=== PATIENT | male | born 1955 | race Two or more races ===

== ENCOUNTER 2021-08-03 02:43 | Inpatient (IN) | payer BC ==
[~2021-08-03] VITALS: Ht 167.6 cm; Wt 71.0 kg
[2021-08-03] MEDS ORDERED: DEXTROSE (50%) 50ML SYRG IV ONE (04:15)
[2021-08-03] MEDS ORDERED: DEXTROSE 10% 1,000 ML IV ONE (04:15)
[2021-08-03 04:57] LABS: Basophils # (auto) 0 10 ^3/uL (0-0.2); Basophils % (auto) 0.7 % (0.0-2.0); Eosinophils # (auto) 0 10 ^3/uL (0-0.8); Eosinophils % (auto) 0.1 % (0.0-7.0); Hematocrit 32.7 % (41.0-53.0); Hemoglobin 11.3 g/dL (13.5-17.5); Lymphocytes # (auto) 0.8 10 ^3/uL (0.4-5.4); Lymphocytes % (auto) 13.3 % (10.0-50.0); Mean Corpuscular Hemoglobin 33.3 pg (28.0-32.0); Mean Corpuscular Hgb Conc. 34.5 g/dL (32.0-36.0); Mean Corpuscular Volume 96.6 fL (80.0-100.0); Monocytes # (auto) 0.5 10 ^3/uL (0-1.3); Monocytes % (auto) 8.7 % (0.0-12.0); Neutrophils # (auto) 4.4 10 ^3/uL (1.6-8.6); Neutrophils % (auto) 77.2 % (37.0-80.0); Red Blood Cells 3.38 10^6/uL (4.5-5.90); Red Cell Distribution Width 13.3 % (11.8-14.3); White Blood Cell 5.7 10^3/uL (4.4-10.8)
[2021-08-03 05:11] LABS: Calcium 8.2 mg/dL (8.5-10.1)
[2021-08-03 05:15] LABS: Albumin 3.5 g/dL (3.4-5.0); BUN/Creatinine Ratio 7.7
[2021-08-03 05:17] LABS: Bilirubin, Total 0.3 mg/dL (0.2-1.0); Total Protein 7.4 g/dL (6.4-8.2)
[2021-08-03] MEDS ORDERED: ONDANSETRON HCL 4 MG/2 ML VIAL IV PRN ×2 (06:00→14:15)
[2021-08-03] MEDS ORDERED: cloNIDine HCL 0.1 MG TAB PO PRN (06:00)
[2021-08-03] MEDS ORDERED: ACETAMINOPHEN 325 MG TAB PO PRN (06:00)
[2021-08-03] MEDS: DEXTROSE 10% 1,000 ML IV SCH ×3 (06:00→14:15)
[2021-08-03] MEDS ORDERED: TEMAZEPAM 15 MG CAP PO PRN (06:00)
[2021-08-03] MEDS ORDERED: GABAPENTIN 300 MG CAP PO SCH (06:00)
[2021-08-03] MEDS: ACCU-CHEK COMFORT CURVE STRIP VI SCH ×11 (08:00→23:00)
[2021-08-03] MEDS: InsuLIN REG 1unit/0.01ml Soln (100units/ml) SC SCH ×2 (09:47→11:31)
[2021-08-03] MEDS: DEXTROSE (50%) 50ML SYRG IV PRN ×3 (09:49→14:07)
[2021-08-03] MEDS: METOPROLOL TARTRATE 50 MG TAB PO SCH ×2 (10:04→21:24)
[2021-08-03] MEDS ORDERED: BUMETANIDE 2.5mg/10ml (0.25 mg/ml) INJ IV ONE (10:45)
[2021-08-03] MEDS ORDERED: SODIUM BICARBONATE 8.4 % INJ 50ML VIAL IV ONE (10:45)
[2021-08-03 11:00] VITALS: BP 169/96
[2021-08-03] MEDS: amLODIPine BESYLATE 5 MG TAB PO SCH (11:30)
[2021-08-03] MEDS: CALCIUM ACETATE 667 MG CAP PO SCH ×2 (11:39→18:23)
[2021-08-03] MEDS ORDERED: hydrALAZINE HCL 20 MG/ML VL IV PRN (14:15)
[2021-08-03] MEDS: SODIUM ZIRCONIUM CYCL 10 GM PAK PO SCH ×2 (16:46→21:22)
[2021-08-03 17:20] VITALS: BP 162/94
[2021-08-03] MEDS ORDERED: GLIP5TAB12 PO (17:34)
[2021-08-03] MEDS ORDERED: METF-370 PO (17:34)
[2021-08-03] MEDS: BUMETANIDE 2.5mg/10ml (0.25 mg/ml) INJ IV SCH (18:23)
[2021-08-03] MEDS: HEPARIN SODIUM (PORCINE) 5000 UNITS/ML 1ML VIAL SC SCH (21:26)
[2021-08-03] MEDS ORDERED: GABAPENTIN 100 MG CAP PO SCH (22:00)
[2021-08-03 22:36] VITALS: BP 149/79
[2021-08-04] MEDS: ACCU-CHEK COMFORT CURVE STRIP VI SCH ×18 (01:00→22:00)
[2021-08-04] MEDS: DEXTROSE 10% 1,000 ML IV SCH ×2 (03:36→16:55)
[2021-08-04 05:24] VITALS: BP 130/85
[2021-08-04] MEDS: SODIUM ZIRCONIUM CYCL 10 GM PAK PO SCH ×3 (06:10→23:12)
[2021-08-04] MEDS: BUMETANIDE 2.5mg/10ml (0.25 mg/ml) INJ IV SCH ×2 (06:10→18:10)
[2021-08-04] MEDS ORDERED: SODIUM CHL 0.9% 1000 ML BAG XX ONE (07:00)
[2021-08-04] MEDS: CALCIUM ACETATE 667 MG CAP PO SCH ×3 (08:44→18:10)
[2021-08-04] MEDS: METOPROLOL TARTRATE 50 MG TAB PO SCH ×2 (08:46→23:14)
[2021-08-04] MEDS: amLODIPine BESYLATE 5 MG TAB PO SCH (08:47)
[2021-08-04 09:14] LABS: Basophils # (auto) 0 10 ^3/uL (0-0.2); Basophils % (auto) 0.8 % (0.0-2.0); Eosinophils # (auto) 0 10 ^3/uL (0-0.8); Eosinophils % (auto) 0.6 % (0.0-7.0); Hematocrit 28.5 % (41.0-53.0); Hemoglobin 9.8 g/dL (13.5-17.5); Lymphocytes # (auto) 0.8 10 ^3/uL (0.4-5.4); Lymphocytes % (auto) 20.6 % (10.0-50.0); Mean Corpuscular Hgb Conc. 34.6 g/dL (32.0-36.0); Mean Corpuscular Volume 95.2 fL (80.0-100.0); Monocytes # (auto) 0.4 10 ^3/uL (0-1.3); Neutrophils # (auto) 2.6 10 ^3/uL (1.6-8.6); Nucleated Red Blood Cells % 0.1 %; Red Blood Cells 2.99 10^6/uL (4.5-5.90); Red Cell Distribution Width 13.1 % (11.8-14.3); White Blood Cell 3.8 10^3/uL (4.4-10.8)
[2021-08-04 09:30] VITALS: BP 159/62
[2021-08-04 09:43] LABS: BUN/Creatinine Ratio 6.9; Calcium 7.4 mg/dL (8.5-10.1); Phosphorus 5.3 mg/dL (2.5-4.90); Potassium 4.5 mmol/L (3.5-5.1)
[2021-08-04] MEDS: HEPARIN SODIUM (PORCINE) 5000 UNITS/ML 1ML VIAL SC SCH ×2 (10:08→23:17)
[2021-08-04] MEDS ORDERED: FAMO-12 PO (11:42)
[2021-08-04] MEDS ORDERED: METO-159 PO (11:42)
[2021-08-04] MEDS ORDERED: BUME2TAB5 PO (11:42)
[2021-08-04] MEDS ORDERED: CLON0.1T PO (11:42)
[2021-08-04] MEDS ORDERED: HYDR-4798 PO (11:42)
[2021-08-04] MEDS ORDERED: GABA300C10 PO (11:42)
[2021-08-04 13:00] VITALS: BP 156/69
[2021-08-04 16:30] VITALS: BP 128/64
[2021-08-04] MEDS ORDERED: EPOETIN ALFA-EPBX 10,000 UNIT/1ML VIAL SC ONE (21:00)
[2021-08-04 22:00] VITALS: BP 137/66
[2021-08-04] MEDS ORDERED: GABAPENTIN 300 MG CAP PO ONE (23:30)
[2021-08-04] MEDS: HYDROcodone-ACET 5/325MG TAB PO PRN (23:49)
[2021-08-05] MEDS: ACCU-CHEK COMFORT CURVE STRIP VI SCH ×3 (02:00→10:00)
[2021-08-05 05:00] VITALS: BP 158/79
[2021-08-05] MEDS ORDERED: GABAPENTIN 300 MG CAP PO SCH (06:00)
[2021-08-05] MEDS: SODIUM ZIRCONIUM CYCL 10 GM PAK PO SCH (06:00)
[2021-08-05] MEDS: BUMETANIDE 2.5mg/10ml (0.25 mg/ml) INJ IV SCH (06:40)
[2021-08-05 06:43] LABS: Basophils # (auto) 0 10 ^3/uL (0-0.2); Basophils % (auto) 0.7 % (0.0-2.0); Eosinophils # (auto) 0 10 ^3/uL (0-0.8); Hematocrit 30.6 % (41.0-53.0); Hemoglobin 10.6 g/dL (13.5-17.5); Lymphocytes # (auto) 0.9 10 ^3/uL (0.4-5.4); Mean Corpuscular Hemoglobin 32.4 pg (28.0-32.0); Mean Corpuscular Hgb Conc. 34.5 g/dL (32.0-36.0); Mean Corpuscular Volume 94.1 fL (80.0-100.0); Monocytes # (auto) 0.4 10 ^3/uL (0-1.3); Monocytes % (auto) 10.8 % (0.0-12.0); Neutrophils # (auto) 2.6 10 ^3/uL (1.6-8.6); Neutrophils % (auto) 65.5 % (37.0-80.0); Nucleated Red Blood Cells % 0.1 %; Red Blood Cells 3.26 10^6/uL (4.5-5.90)
[2021-08-05 07:00] LABS: BUN/Creatinine Ratio 6.6; Calcium 7.9 mg/dL (8.5-10.1); Potassium 3.9 mmol/L (3.5-5.1)
[2021-08-05 08:00] VITALS: BP 145/79
[2021-08-05] MEDS: CALCIUM ACETATE 667 MG CAP PO SCH ×2 (08:45→11:40)
[2021-08-05] MEDS: METOPROLOL TARTRATE 50 MG TAB PO SCH (08:45)
[2021-08-05] MEDS: amLODIPine BESYLATE 5 MG TAB PO SCH (08:45)
[2021-08-05] MEDS: HEPARIN SODIUM (PORCINE) 5000 UNITS/ML 1ML VIAL SC SCH (08:52)
[2021-08-05] MEDS: HYDROcodone-ACET 5/325MG TAB PO PRN (08:55)
[2021-08-05] MEDS ORDERED: GLIM-5 PO (11:14)
[2021-08-05] MEDS ORDERED: CALC667C5 PO (11:14)
[2021-08-05] MEDS ORDERED: AML5T PO (11:14)
[2021-08-05] MEDS ORDERED: DEXTROSE (50%) 50ML SYRG IV PRN (11:15)
[2021-08-05] MEDS ORDERED: INSREGI SC (11:20)
[2021-08-05] MEDS ORDERED: InsuLIN REG 1unit/0.01ml Soln (100units/ml) SC SCH (11:30)
[2021-08-05] MEDS ORDERED: ACCU-CHEK COMFORT CURVE STRIP VI SCH ×2 (11:30)
[2021-08-05 12:00] VITALS: BP 134/71
== END 2021-08-05 13:11 | disposition home or self-care (01) | DRG 637 ==
LOC: EDBD 02:43 → ER 02:43 → OVERFLOW 06:07 → WEST WING 10:35
PROVIDERS: ADMIT Nurse Practitioner; ATTEND Internal Medicine
PROC: 5A1D70Z Performance of Urinary Filtration, Intermittent, Less than 6 Hours Per Day (ICD-10-PCS; principal; 2021-08-04)
DX: E11.649 Type 2 diabetes mellitus with hypoglycemia without coma (principal); G93.41 Metabolic encephalopathy; I12.0 Hypertensive chronic kidney disease with stage 5 chronic kidney disease or end stage renal disease; N18.6 End stage renal disease; T38.3X5A Adverse effect of insulin and oral hypoglycemic [antidiabetic] drugs, initial encounter; D63.1 Anemia in chronic kidney disease; E11.22 Type 2 diabetes mellitus with diabetic chronic kidney disease; E87.5 Hyperkalemia; Z91.15 Patient's noncompliance with renal dialysis; Z99.2 Dependence on renal dialysis; Y92.89 Other specified places as the place of occurrence of the external cause
CPT/HCPCS: 36415; 70450; 71045; 80048; 80053; 82962; 84100; 85025; 87426; 90935; 96365; 96375; 99291; G0378

== ENCOUNTER 2022-05-23 01:18 | Emergency (ER) | payer BC ==
[~2022-05-23] VITALS: Ht 167.6 cm; Wt 72.0 kg
[~2022-05-23 01:18] MED LIST: AML5T PO; BUME2TAB5 PO; CALC667C5 PO; FAMO-12 PO; GABA300C10 PO; GLIM-5 PO; HYDR-4798 PO; INSREGI SC; METO-159 PO
[2022-05-23] MEDS ORDERED: LABETALOL HCL 5 MG/ML 4ML SYRINGE IV ONE (01:30)
[2022-05-23 01:52] LABS: Basophils # (auto) 0.1 10 ^3/uL (0-0.2); Basophils % (auto) 1.1 % (0.0-2.0); Eosinophils # (auto) 0.2 10 ^3/uL (0-0.8); Eosinophils % (auto) 2.9 % (0.0-7.0); Hematocrit 30.4 % (41.0-53.0); Hemoglobin 10.8 g/dL (13.5-17.5); Lymphocytes # (auto) 1.6 10 ^3/uL (0.4-5.4); Lymphocytes % (auto) 30.6 % (10.0-50.0); Mean Corpuscular Hemoglobin 33.3 pg (28.0-32.0); Mean Corpuscular Hgb Conc. 35.4 g/dL (32.0-36.0); Monocytes # (auto) 0.5 10 ^3/uL (0-1.3); Monocytes % (auto) 9.4 % (0.0-12.0); Nucleated Red Blood Cells % 0.1 %; Red Blood Cells 3.24 10^6/uL (4.5-5.90); Red Cell Distribution Width 12.9 % (11.8-14.3); White Blood Cell 5.3 10^3/uL (4.4-10.8)
[2022-05-23 02:12] LABS: INR 0.98 (0.9-1.15); Partial Thromboplastin Time 28.7 sec (24.6-33.4)
[2022-05-23 02:25] LABS: Albumin 4.1 g/dL (3.4-5.0); Calcium 8.1 mg/dL (8.5-10.1); Potassium 4.4 mmol/L (3.5-5.1)
[2022-05-23 02:27] LABS: BUN/Creatinine Ratio 3.8
[2022-05-23 02:30] LABS: Bilirubin, Total 0.3 mg/dL (0.2-1.0); Total Protein 7.6 g/dL (6.4-8.2)
[2022-05-23 02:31] VITALS: BP 194/74
== END 2022-05-23 04:27 | disposition short-term general hospital (02) ==
LOC: ER 01:19
DX: R47.81 Slurred speech (principal); R53.1 Weakness; R20.2 Paresthesia of skin; I12.0 Hypertensive chronic kidney disease with stage 5 chronic kidney disease or end stage renal disease; E11.22 Type 2 diabetes mellitus with diabetic chronic kidney disease; N18.6 End stage renal disease; Z99.2 Dependence on renal dialysis
CPT/HCPCS: 36415; 70450; 71045; 80053; 84484; 85025; 85610; 85730; 93005; 96365; 96375; 99285; J3490